=== PATIENT | male | born 1985 | race Caucasian/White ===

== ENCOUNTER 2021-09-10 13:26 | Observation (INO) | payer OTHER ==
[~2021-09-10] VITALS: Ht 185.4 cm; Wt 90.7 kg
[~2021-09-10 13:26] MED LIST: NOHOMEMEDICATIONS
[2021-09-10 13:34] VITALS: BP 106/81
[2021-09-10 15:10] LABS: ABSOLUTE EOSINOPHILS 0.2 thou/uL (0.0-0.7); ABSOLUTE LYMPHOCYTES 1.4 thou/uL (0.8-5.3); ABSOLUTE MONOCYTES 0.6 thou/uL (0.0-1.2); ABSOLUTE NEUTROPHILS 4.2 thou/uL (1.6-8.1); BASOPHILS 0.4 %; EOSINOPHILS 2.4 %; HEMATOCRIT 41.1 % (42.0-52.0); HEMOGLOBIN 14.6 gm/dL (14.0-18.0); LYMPHOCYTES 21.6 %; MCH 30.3 pg (26.0-34.0); MCHC 35.5 g/dL (28.0-37.0); MCV 85.4 fL (80.0-100.0); MONOCYTES 9.2 %; MPV 7.3 fl. (7.2-11.1); NUCLEATED RBCS 0 /100WBC; PLATELET COUNT* 221 thou/uL (150-400); POLYS 66.4 %; RBC 4.81 mil/uL (4.50-6.00); RDW-CV 12.2 % (10.5-14.5); WBC 6.3 thou/uL (4.0-11.0)
[2021-09-10 15:17] LABS: CREATININE 1.2 mg/dL (0.6-1.3); POTASSIUM 3.9 mmol/L (3.5-5.1)
[2021-09-10 17:55] VITALS: BP 117/77
[2021-09-10] MEDS ORDERED: NORCO5 PO (20:22)
[2021-09-10 20:23] VITALS: BP 117/77
--- NOTE | 2021-09-14 20:30 | OP ---
[address] [address] OPERATIVE REPORT Name: MARELY RENDON Room: [address] M.R.#: [id number] Admission: 09/10/21 Attend Phys: Mattie Landis MD Discharge: 09/10/21 Date of : 87 Report #: [id number] THIS REPORT FOR: cc: [facility] - Clinic physician unknown [facility] - Clinic physician unknown Edi Corbett II, DO ~ DATE OF SURGERY: 09/10/2021 PREOPERATIVE DIAGNOSIS: Left hand foreign body. POSTOPERATIVE DIAGNOSIS: Left hand foreign body with tendon involvement of the extensor tendons. PROCEDURE: 1. Left hand excision, foreign body. 2. Irrigation and debridement of left hand tendon sheath. 3. Exploration of left hand extensor tendons. SURGEON: Edi Corbett II, DO. PRICING ASSOCIATE: CASSANDRA Sánchez. ANESTHESIA: Per operative record. ESTIMATED BLOOD LOSS: Minimal. ANTIBIOTICS: Per operative record. DRAINS: None. COMPLICATIONS: None. CONDITION: The patient stable to recovery room. OPERATIVE PROCEDURE: The patient was taken to operative suite, placed supine on the operating table, given appropriate anesthesia. The patient's left hand was sterilely prepped and draped with well-padded tourniquet applied to the upper extremity. After Esmarch exsanguination, it was inflated for the duration of the procedure. The operative site was sterilely prepped and draped. Surgery began by an incision over the dorsal aspect of the left hand in line with the nail, which was underneath the skin that did have barbs on it, which were penetrating through the dorsal tendons down to bone and exploration of these tendons was performed to evaluate for intact some more tendon fraying. There was no deep penetration of the dorsal extensor tendons of the index and long finger. The foreign body was removed from the underlying tissues. Barbs were covered and it was pulled out from its attachment sites. [place] [address] OPERATIVE REPORT Name: MARELY RENDON [address]: [address] [id number] Admission: 09/10/21 Attend Phys: Mattie Landis MD Discharge: 09/10/21 Date of : 87 Report #: [id number] the wound with irrigation and debridement performed of any excess debris from the nail injury. Final aspiration was then performed showing intact tendons with only mild evidence of fraying and penetration of the extensor tendon of the index finger. Final irrigation was performed. It was then closed with a Vicryl and nylon stitch. Sterile dressing was applied. The patient transported to recovery in stable condition. Counts were correct throughout the procedure. <ELECTRONICALLY SIGNED> By: Edi Corbett II, DO 09/14/21 2030 [id number] Marisel Corbett II, DO /nt
--- NOTE | 2021-09-14 20:30 | CON ---
[address] [address] CONSULTATION Name: MARELY RENDON Room: [address] M.RVania#: [id number] Admission: 09/10/21 Attend Phys: Mattie Landis MD Discharge: 09/10/21 Date of : 87 Report #: [id number] THIS REPORT FOR: cc: [facility] - Clinic physician unknown [facility] - Clinic physician unknown Edi Corbett II DO ~ DATE OF CONSULTATION: 09/10/2021 ORTHOPEDIC CONSULTATION HISTORY OF PRESENT ILLNESS: A nail gun injury to the left hand. 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 It occurred around noon. Pain was moderate, lasts for several hours. He is in good health. States that the rest has helped it. The last tetanus was 2019. MEDICAL PROBLEMS: Foreign body of the hand. ALLERGIES: None. FAMILY HISTORY: Noncontributory. MEDICAL HISTORY: No surgeries or past medical problems. MEDICATIONS: No home medications. SOCIAL HISTORY: Never smoker. Occasional alcohol. Denies any recreational drugs. REVIEW OF SYSTEMS: A 12-system review of systems negative except for pertinent positives in the HPI. PHYSICAL EXAMINATION: VITAL SIGNS: Temperature 36.6, pulse 83, respirations 16, blood pressure 106/81, and pulse ox 98%. GENERAL: The patient is alert and oriented, well developed, and conversational. EYES, EARS, NOSE AND THROAT: PERRLA, EOMI. ENT normal. TMs normal. Pharynx normal. NECK: Normal inspection, nontender with full range of motion. RESPIRATORY: Chest, nontender. LUNGS: Clear. Normal breath sounds. No respiratory distress. CARDIOVASCULAR: Regular rate and rhythm. Normal peripheral pulses. ABDOMEN: No masses. Normal bowel sounds. No organomegaly. EXTREMITIES: The patient's left hand does have nail within the dorsal aspect. There appears to be entrapment of some of the tendons. Distal [place] [address] CONSULTATION Name: MARELY RENDON Room: [address]#: [id number] Admission: 09/10/21 Attend Phys: Mattie Landis MD Discharge: 09/10/21 Date of : 87 Report #: [id number] NEUROLOGIC: Normal mood and affect. No sensory deficits. SKIN: Normal. Warm and dry. LYMPHATIC: No adenopathy. LABORATORY DATA: Sodium 141, potassium 3.9, chloride 105, and carbon dioxide 29. White blood cell count 6.3, red blood cells 4.81, and hemoglobin 14.6. COVID-19 negative. DIAGNOSTIC DATA: X-ray of the left hand shows a nail with a foreign body in the soft tissues. There are also metal fragments. ASSESSMENT: Left hand nail gun injury with possible tendon involvement. PLAN: At this time, the patient is continued n.p.o. He is discussed risks, benefits, complications, indications for surgery and would like to proceed with exploration of the tendons and removal of foreign body. We will plan 23-hour observation and discharge when stable. Continue empiric IV antibiotics and pain control. The patient assumed all risks and wished to proceed with surgery. We will initiate shortly. <ELECTRONICALLY SIGNED> By: Edi Corbett II, DO 09/14/21 2030 [id number] 1910Edi Corbett II, DO /nt
== END 2021-09-10 23:30 | disposition home or self-care (01) ==
LOC: M.ERS 13:26 → M.TBA-ER 15:08
PROVIDERS: Emergency Medicine Emergency Medical Services; ADMIT Internal Medicine; ATTEND Internal Medicine
DX: S60.552A Superficial foreign body of left hand, initial encounter (principal); Z20.822 Contact with and (suspected) exposure to COVID-19; R73.9 Hyperglycemia, unspecified; W34.09XA Accidental discharge from other specified firearms, initial encounter; Y93.89 Activity, other specified; Y92.89 Other specified places as the place of occurrence of the external cause